=== PATIENT | male | born 1985 | race Caucasian/White ===

== ENCOUNTER 2016-10-13 22:21 | Emergency (ER) | payer BC, OTHER ==
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
--- NOTE | 2016-10-13 23:27 | CT ---
EXAM: CT Head Without Intravenous Contrast CLINICAL HISTORY: Reason: Pain TECHNIQUE: Axial computed tomography images of the head/brain without intravenous contrast. CTDI is 0.15, 59.43, 24.16 mGy and DLP is 1747 mGy-cm. This CT exam was performed using one or more of the following dose reduction techniques: automated exposure control, adjustment of the mA and/or kV according to patient size, and/or use of iterative reconstruction technique. COMPARISON: No relevant prior studies available. FINDINGS: Brain: No evidence of acute infarct, hemorrhage, mass or edema. No significant white matter disease. Ventricles: Unremarkable. No ventriculomegaly. Bones/joints: Posterior joint changes noted within the left mastoid air cells. No acute fracture. Soft tissues: Unremarkable. Sinuses: Mild mucosal thickening in the paranasal sinuses. Mastoid air cells: See above. IMPRESSION: No acute findings. EXAM: CT Cervical Spine Without Intravenous Contrast CLINICAL HISTORY: Reason: Pain TECHNIQUE: Axial computed tomography images of the cervical spine without intravenous contrast. CTDI is 0.15, 59.43, 24.16 mGy and DLP is 1747 mGy- cm. This CT exam was performed using one or more of the following dose reduction techniques: automated exposure control, adjustment of the mA and/or kV according to patient size, and/or use of iterative reconstruction technique. COMPARISON: No relevant prior studies available. FINDINGS: Vertebrae: Unremarkable. No acute fracture. Discs/spinal canal/neural foramina: No acute findings. No spinal canal stenosis. Soft tissues: Unremarkable. Lung apices: Unremarkable as visualized. IMPRESSION: Normal cervical spine CT.
--- NOTE | 2016-10-13 23:43 | XR ---
EXAM: XR Left Ankle Complete, 3 or More Views CLINICAL HISTORY: Pain TECHNIQUE: Frontal, lateral and oblique views of the left ankle. COMPARISON: No relevant prior studies available. FINDINGS: Bones/joints: Unremarkable. No acute fracture. No dislocation. Soft tissues: Unremarkable. IMPRESSION: Normal left ankle x-rays.
--- NOTE | 2016-10-13 23:43 | XR ---
EXAM: XR Left Elbow Complete, 3 or More Views CLINICAL HISTORY: Pain TECHNIQUE: Frontal, lateral and oblique views of the left elbow. COMPARISON: No relevant prior studies available. FINDINGS: Bones/joints: Unremarkable. No acute fracture. No dislocation. Soft tissues: Unremarkable. IMPRESSION: Normal left elbow x-rays.
[2016-10-13] MEDS ORDERED: HYDROcodone/APAP 5-325MG 1 EACH TAB PO STA (23:49)
[2016-10-13] MEDS ORDERED: CYCLOBENZAPRINE 10 MG TAB PO STA (23:49)
[2016-10-14 00:09] VITALS: BP 126/84; PULSE 84; RESP 18; TEMP 97.2
== END 2016-10-14 00:09 | disposition home or self-care (01) ==
LOC: EC 22:21
DX: S06.0X0A Concussion without loss of consciousness, initial encounter (principal); S16.1XXA Strain of muscle, fascia and tendon at neck level, initial encounter; S93.402A Sprain of unspecified ligament of left ankle, initial encounter; F17.200 Nicotine dependence, unspecified, uncomplicated; Z88.1 Allergy status to other antibiotic agents; V87.8XXA Person injured in other specified noncollision transport accidents involving motor vehicle (traffic), initial encounter; Y92.410 Unspecified street and highway as the place of occurrence of the external cause
CPT/HCPCS: 70450; 72125; 99284

== ENCOUNTER → 2016-10-15 | Outpatient (CLI) | payer BC ==
--- NOTE | 2016-10-15 11:28 | XR ---
EXAMINATION TYPE: XR chest 2V DATE OF EXAM: 10/15/2016 HISTORY: R53.83 fatigue. REFERENCE: NONE. FINDINGS: There is mild peribronchial cuffing present. Lungs otherwise clear. Pleural space are clear . The heart is not enlarged. IMPRESSION: FINDINGS SUGGESTIVE OF BRONCHITIS.
== END | disposition home or self-care (01) ==
LOC: RADXRMAIN 11:06
PROVIDERS: ATTEND Family Medicine
DX: R53.83 Other fatigue (principal)
CPT/HCPCS: 71020

== ENCOUNTER 2018-10-08 08:11 | Emergency (ER) | payer BC, OTHER ==
[2018-10-08] MEDS ORDERED: SODIUM CHLORIDE 0.9% 1,000 ML IV STA (08:46)
[2018-10-08] MEDS ORDERED: ACETAMINOPHEN TAB 500 MG TAB PO STA (08:47)
[2018-10-08 09:15] LABS: Basophils # (A) 0.1 k/uL (0-0.2); Basophils % (A) 0 %; Eosinophils # (A) 0.3 k/uL (0-0.7); Eosinophils % (A) 2 %; HCT 38.6 % (39.0-53.0); HGB 12.7 gm/dL (13.0-17.5); Lymphocytes # (A) 0.9 k/uL (1.0-4.8); Lymphocytes % (A) 6 %; MCH 29.9 pg (25.0-35.0); MCV 90.8 fL (80.0-100.0); Mean Platelet Volume 6.9; Monocytes # (A) 0.7 k/uL (0-1.0); Monocytes % (A) 4 %; Neutrophils # (A) 13.9 k/uL (1.3-7.7); Neutrophils % (A) 87 %; Platelet Count 212 k/uL (150-450); RBC 4.26 m/uL (4.30-5.90); RDW 13.5 % (11.5-15.5)
[2018-10-08 09:20] LABS: ALT 23 U/L (21-72); AST 26 U/L (17-59); Albumin 3.5 g/dL (3.5-5.0); Alkaline Phosphatase 83 U/L (38-126); Amylase 33 U/L (30-110); Anion Gap 6 mmol/L; Blood Urea Nitrogen 11 mg/dL (9-20); Calcium 9.1 mg/dL (8.4-10.2); Carbon Dioxide 23 mmol/L (22-30); Chloride 105 mmol/L (98-107); Glucose 108 mg/dL (74-99); Lipase 32 U/L (23-300); Potassium 3.9 mmol/L (3.5-5.1); Sodium 134 mmol/L (137-145); Total Bilirubin 0.9 mg/dL (0.2-1.3); Total Protein 6.2 g/dL (6.3-8.2)
[2018-10-08] MEDS ORDERED: KETOROLAC 30 MG/ML 1 ML VIAL IVP STA (09:21)
--- NOTE | 2018-10-08 09:26 | ED ---
General Adult HPI - General Chief complaint: Abdominal Pain Stated complaint: kidney pain Time Seen by Provider: 10/08/18 08:46 Source: patient, RN notes reviewed Mode of arrival: ambulatory Limitations: no limitations - History of Present Illness Initial comments: 32-year-old male presents to the emergency department for a chief complaint of left-sided flank pain 24 hours. States his pain in left flank and seems to radiate around the left side of the abdomen. States it is a sharp pain in nature. Patient states laying on his side makes this pain worse. Patient also admits to fevers. States he has had fevers since yesterday. Denies any dysur ia. Denies any hematuria noted. Denies any diarrhea or nausea or vomiting.Patient has no other complaints at this time including shortness of breath, chest pain, abdominal pain, nausea or vomiting, headache, or visual changes. - Related Data Previous Rx's Medication Instructions Recorded Azithromycin [Zithromax Z-pack] 250 mg PO DIRECTED #6 tab 10/08/18 Allergies Allergy/AdvReac Type Severity Reaction Status Date / Time cefaclor [From Ceclor] AdvReac Cj Verified 10/08/18 08:33 Syndrome Review of Systems ROS Statement: Those systems with pertinent positive or pertinent negative responses have been documented in the HPI. ROS Other: All systems not noted in ROS Statement are negative. Past Medical History Past Medical History: No Reported History History of Any Multi-Drug Resistant Organisms: None Reported Past Surgical History: Ear Surgery Additional Past Surgical History / Comment(s): oral surgery Past Psychological History: No Psychological Hx Reported Smoking Status: Current every day smoker Past Alcohol Use History: Occasional Past Drug Use History: None Reported General Exam Limitations: no limitations General appearance: alert, in no apparent distress Head exam: Present: atraumatic, normocephalic, normal inspection Eye exam: Present: normal appearance. Absent: PERRL, EOMI, scleral icterus, conjunctival injection, nystagmus ENT exam: Present: normal exam, normal oropharynx, mucous membranes moist, TM's normal bilaterally, normal external ear exam Neck exam: Present: normal inspection, full ROM. Absent: tenderness, meningismus, lymphadenopathy Respiratory exam: Present: normal lung sounds bilaterally. Absent: respiratory distress, wheezes, rales, rhonchi, stridor Cardiovascular Exam: Present: regular rate, normal rhythm, normal heart sounds. Absent: systolic murmur, diastolic murmur, rubs, gallop, clicks GI/Abdominal exam: Present: soft, normal bowel sounds. Absent: distended, tenderness, guarding, rebound, rigid Back exam: Absent: CVA tenderness (R), CVA tenderness (L) Neurological exam: Present: alert, oriented X3, CN II-XII intact Psychiatric exam: Present: normal affect, normal mood Course Vital Signs 10/08/18 10/08/18 08:22 11:17 Temperature 101.5 F H 98.4 F Pulse Rate 111 H 94 Respiratory 18 16 Rate Blood Pressure 103/62 109/66 O2 Sat by Pulse 95 95 Oximetry Medical Decision Making - Medical Decision Making 32-year-old male presents to the emergency department for a chief complaint of left flank pain with fever 24 hours. On examand CVA tenderness. No abdominal tenderness. CBC however does show a white count of 16 and patient does have a 101 fever. CMP unremarkable. Urine negative, trace blood which patient was notified about. CT abdomen and pelvis is ordered to evaluate for kidney stone. However CT abdomen and pelvis does show a large left lower lobe infiltrate. Patient denies significant cough but does state it is somewhat painful to breathe. Medical correlation advised to evaluate for appendicitis as there is nonvisualization. However patient does not have any pain whatsoever in the right lower quadrant or right back. No abdominal tenderness in this area. At this time it is likely that fever is secondary to pneumonia. Patient was given dose of azithromycin here. I did offer to admit patient but he would much rather go home. Vitals did stabilize. Patient is no longer afebrile and heart rate is decreasing. Patient is 95% on room air. Resting complaint of shortness of breath. Patient will be given a Z-Sp. However will follow up with primary care for repeat chest x-ray in one week. He will follow up earlier as well. He will return here if he has any worsening symptoms which he is aware of. - Lab Data Result diagrams: 10/08/18 08:50 10/08/18 08:50 Lab Results 10/08/18 10/08/18 10/08/18 Range/Units 08:50 08:50 08:50 WBC 16.0 H (3.8-10.6) k/uL RBC 4.26 L (4.30-5.90) m/uL Hgb 12.7 L (13.0-17.5) gm/dL Hct 38.6 L (39.0-53.0) % MCV 90.8 (80.0-100.0) fL MCH 29.9 (25.0-35.0) pg MCHC 33.0 (31.0-37.0) g/dL RDW 13.5 (11.5-15.5) % Plt Count 212 (150-450) k/uL Neutrophils % 87 % Lymphocytes % 6 % Monocytes % 4 % Eosinophils % 2 % Basophils % 0 % Neutrophils # 13.9 H (1.3-7.7) k/uL Lymphocytes # 0.9 L (1.0-4.8) k/uL Monocytes # 0.7 (0-1.0) k/uL Eosinophils # 0.3 (0-0.7) k/uL Basophils # 0.1 (0-0.2) k/uL Sodium 134 L (137-145) mmol/L Potassium 3.9 (3.5-5.1) mmol/L Chloride 105 (98-107) mmol/L Carbon Dioxide 23 (22-30) mmol/L Anion Gap 6 mmol/L BUN 11 (9-20) mg/dL Creatinine 0.77 (0.66-1.25) mg/dL Est GFR (CKD-EPI)AfAm >90 (>60 ml/min/1.73 sqM) Est GFR (CKD-EPI)NonAf >90 (>60 ml/min/1.73 sqM) Glucose 108 H (74-99) mg/dL Plasma Lactic Acid [place] 1.1 (0.7-2.0) mmol/L Calcium 9.1 (8.4-10.2) mg/dL Total Bilirubin 0.9 (0.2-1.3) mg/dL AST 26 (17-59) U/L ALT 23 (21-72) U/L Alkaline Phosphatase 83 (38-126) U/L Total Protein 6.2 L (6.3-8.2) g/dL Albumin 3.5 (3.5-5.0) g/dL Amylase 33 (30-110) U/L Lipase 32 (23-300) U/L Urine Color Urine Appearance (Clear) Urine pH (5.0-8.0) Ur Specific [place] (1.001-1.035) Urine Protein (Negative) Urine Glucose (UA) (Negative) Urine Ketones (Negative) Urine Blood (Negative) Urine Nitrite (Negative) Urine Bilirubin (Negative) Urine Urobilinogen (<2.0) mg/dL Ur Leukocyte Esterase (Negative) Urine RBC (0-5) /hpf Urine WBC (0-5) /hpf Urine Mucus (None) /hpf 10/08/18 Range/Units 09:40 WBC (3.8-10.6) k/uL RBC (4.30-5.90) m/uL Hgb (13.0-17.5) gm/dL Hct (39.0-53.0) % MCV (80.0-100.0) fL MCH (25.0-35.0) pg MCHC (31.0-37.0) g/dL RDW (11.5-15.5) % Plt Count (150-450) k/uL Neutrophils % % Lymphocytes % % Monocytes % % Eosinophils % % Basophils % % Neutrophils # (1.3-7.7) k/uL Lymphocytes # (1.0-4.8) k/uL Monocytes # (0-1.0) k/uL Eosinophils # (0-0.7) k/uL Basophils # (0-0.2) k/uL Sodium (137-145) mmol/L Potassium (3.5-5.1) mmol/L Chloride (98-107) mmol/L Carbon Dioxide (22-30) mmol/L Anion Gap mmol/L BUN (9-20) mg/dL Creatinine (0.66-1.25) mg/dL Est GFR (CKD-EPI)AfAm (>60 ml/min/1.73 sqM) Est GFR (CKD-EPI)NonAf (>60 ml/min/1.73 sqM) Glucose (74-99) mg/dL Plasma Lactic Acid [place] (0.7-2.0) mmol/L Calcium (8.4-10.2) mg/dL Total Bilirubin (0.2-1.3) mg/dL AST (17-59) U/L ALT (21-72) U/L Alkaline Phosphatase (38-126) U/L Total Protein (6.3-8.2) g/dL Albumin (3.5-5.0) g/dL Amylase (30-110) U/L Lipase (23-300) U/L Urine Color Yellow Urine Appearance Clear (Clear) Urine pH 7.5 (5.0-8.0) Ur Specific [place] 1.021 (1.001-1.035) Urine Protein 1+ H (Negative) Urine Glucose (UA) Negative (Negative) Urine Ketones Negative (Negative) Urine Blood Trace H (Negative) Urine Nitrite Negative (Negative) Urine Bilirubin Negative (Negative) Urine Urobilinogen 8.0 (<2.0) mg/dL Ur Leukocyte Esterase Negative (Negative) Urine RBC 1 (0-5) /hpf Urine WBC 1 (0-5) /hpf Urine Mucus Rare H (None) /hpf Disposition Clinical Impression: Left lower lobe pneumonia Disposition: HOME SELF-CARE Condition: Good Instructions (If sedation given, give patient instructions): Pneumonia (ED) Additional Instructions: Please take antibiotic as directed. Motrin and Tylenol for fever. Please drink plenty of fluids. Follow-up with primary care in 1-2 days. It is advised that you follow up with primary care in 1 week as well for a repeat chest x-ray. Return here if you have any worsening symptoms. Prescriptions: Azithromycin [Zithromax Z-pack] 250 mg PO DIRECTED #6 tab Is patient prescribed a controlled substance at d/c from ED?: No Referrals: Gertrude Rose MD [Primary Care Provider] - 1-2 days Time of Disposition: 12:27
[2018-10-08 10:05] LABS: Appearance,Urine Clear (Clear); Bilirubin,Urine Negative (Negative); Blood,Urine Trace (Negative); Color,Urine Yellow; Glucose,Urine (UA) Negative (Negative); Ketones,Urine Negative (Negative); Leukocyte Esterase,Urine Negative (Negative); Mucus,Urine Rare /hpf; Nitrite,Urine Negative (Negative); PH, Urine 7.5 (5.0-8.0); Protein,Urine 1+ (Negative); RBC,Urine 1 /hpf (0-5); Specific Gravity,Urine 1.021 (1.001-1.035); WBC,Urine 1 /hpf (0-5)
--- NOTE | 2018-10-08 10:19 | CT ---
EXAMINATION TYPE: CT abdomen pelvis w con DATE OF EXAM: 10/08/2018 COMPARISON: None HISTORY: Kidney pain CT DLP: 564 mGycm CONTRAST: CT scan of the abdomen and pelvis is performed without Oral Contrast and with IV Contrast, patient in jected with 100 ml mL of Isovue 300. FINDINGS: LUNG BASES-: Large left lower lobe infiltrate. Correlate for pneumonia. LIVER/GB: No calcified gallstones. No space occupying hepatic lesion. Biliary tree is of normal ca liber. PANCREAS: No inflammation. No distinct mass. SPLEEN: No splenic enlargement. No lesion seen. ADRENALS: No nodule. No thickening. KIDNEYS/BLADDER: No hydronephrosis. No nephrolithiasis. No distinct renal mass. Urinary bladder g rossly unremarkable. BOWEL: Non Visualization of the appendix. Little intra-abdominal fat limits evaluation for possible i nflammatory process. Strict clinical correlation is advised . Normal bowel caliber. Trace free flui d within the pelvis. GENITAL ORGANS: No gross abnormality. LYMPH NODES: No greater than 1cm abdominal or pelvic lymph nodes are appreciated. AORTA: No significant abnormality. OSSEOUS STRUCTURES: No significant abnormality is seen. OTHER: No significant additional abnormality is seen. IMPRESSION: 1. Large left lower lobe infiltrate. Correlate for pneumonia. 2.Non Visualization of the appendix. Little intra-abdominal fat limits evaluation for possible inflam matory process. Strict clinical correlation is advised . Small amount of free fluid within the pelvis .
[2018-10-08] MEDS ORDERED: AZITHROMYCIN 500 MG in SODIUM CHLORIDE 0.9% 250 ML IVPB STA (10:55)
[2018-10-08 11:18] VITALS: RESP 16
--- NOTE | 2018-10-08 11:21 | XR ---
EXAMINATION TYPE: XR chest 2V DATE OF EXAM: 10/08/2018 COMPARISON: Chest x-ray October 15, 2016. Same day CT abdomen and pelvis study. HISTORY: Left lower chest pain. TECHNIQUE: Frontal and lateral views of the chest are obtained. FINDINGS: There is new left lower lobe masslike opacity confirmed on 2 views. Right lung is clear. N o pleural effusion or pneumothorax is noted The cardiac silhouette size is within normal limits. Th e osseous structures are intact. IMPRESSION: New left lower lobe pneumonic consolidation.
[2018-10-08 12:54] VITALS: BP 110/70; PULSE 61; TEMP 98.9
== END 2018-10-08 12:53 | disposition home or self-care (01) ==
LOC: EC 08:11
DX: J18.9 Pneumonia, unspecified organism (principal); R10.9 Unspecified abdominal pain; F17.200 Nicotine dependence, unspecified, uncomplicated; Z88.1 Allergy status to other antibiotic agents
CPT/HCPCS: 36415; 71046; 74177; 80053; 81001; 82150; 83605; 83690; 85025; 87040; 96361; 96365; 96375; 99284

== ENCOUNTER 2018-10-17 00:45 | Emergency (ER) | payer BC ==
[2018-10-17 00:59] VITALS: RESP 18
--- NOTE | 2018-10-17 02:07 | XR ---
EXAM: XR Chest, 2 Views CLINICAL HISTORY: ITS.REASON XR Reason: Pain TECHNIQUE: Frontal and lateral views of the chest. COMPARISON: No relevant prior studies available. FINDINGS: Lungs: Unremarkable. No consolidation. Pleural space: Left pleural effusion. No pneumothorax. Heart: No suspicious enlargement. Mediastinum: Unremarkable. Bones/joints: No acute fracture. IMPRESSION: Left pleural effusion.
[2018-10-17] MEDS ORDERED: SODIUM CHLORIDE 0.9% 1,000 ML IV STA (02:50)
[2018-10-17 03:32] LABS: Basophils % (A) 0 %; Eosinophils # (A) 0.5 k/uL (0-0.7); Eosinophils % (A) 5 %; HGB 13.2 gm/dL (13.0-17.5); Lymphocytes # (A) 1.5 k/uL (1.0-4.8); Lymphocytes % (A) 15 %; MCH 29.8 pg (25.0-35.0); MCHC 32.3 g/dL (31.0-37.0); MCV 92.4 fL (80.0-100.0); Mean Platelet Volume 6.6; Monocytes # (A) 0.6 k/uL (0-1.0); Monocytes % (A) 5 %; Neutrophils # (A) 7.6 k/uL (1.3-7.7); Neutrophils % (A) 74 %; RBC 4.44 m/uL (4.30-5.90); WBC 10.4 k/uL (3.8-10.6)
[2018-10-17 03:41] LABS: Platelet Count 508 k/uL (150-450)
[2018-10-17 03:46] LABS: ALT 11 U/L (21-72); AST 14 U/L (17-59); African American GFR (CKD) >90 (>60 ml/min/1.73 sqM); Albumin 3.4 g/dL (3.5-5.0); Alkaline Phosphatase 59 U/L (38-126); Anion Gap 7 mmol/L; Blood Urea Nitrogen 9 mg/dL (9-20); Calcium 8.9 mg/dL (8.4-10.2); Carbon Dioxide 28 mmol/L (22-30); Chloride 104 mmol/L (98-107); Glucose 100 mg/dL (74-99); Potassium 3.8 mmol/L (3.5-5.1); Sodium 139 mmol/L (137-145); Total Bilirubin 0.3 mg/dL (0.2-1.3); Total Protein 6.6 g/dL (6.3-8.2)
--- NOTE | 2018-10-17 04:30 | CT ---
EXAM: CT Angiography Chest With Intravenous Contrast CLINICAL HISTORY: ITS.REASON CT Reason: Pain TECHNIQUE: Axial computed tomographic angiography images of the chest with intravenous contrast using pulmonary embolism protocol. This CT exam was performed using one or more of the following dose reduction techniques: automated exposure control, adjustment of the mA and/or kV according to patient size, and/or use of iterative reconstruction technique. 3D reconstructed images were created and reviewed. COMPARISON: No relevant prior studies available. FINDINGS: Pulmonary arteries: Unremarkable. No pulmonary embolism. Aorta: No suspicious findings. No thoracic aortic aneurysm. Lungs: Mucous plugging at the left lower lobe with postobstructive atelectasis. No mass. Pleural space: Moderate left pleural effusion. No pneumothorax. Heart: Unremarkable. No cardiomegaly. No significant pericardial effusion. No evidence of RV dysfunction. Bones/joints: No acute fracture. No dislocation. Soft tissues: Unremarkable. Lymph nodes: Unremarkable. No enlarged lymph nodes. IMPRESSION: 1. Moderate left pleural effusion. 2. Mucous plugging at the left lower lobe with postobstructive atelectasis.
--- NOTE | 2018-10-17 04:34 | ED ---
General Adult HPI - General Source: patient, RN notes reviewed, old records reviewed Mode of arrival: ambulatory Limitations: no limitations <Hansel Pak - Last Filed: 10/17/18 04:44> <Karissa Rudolph - Last Filed: 10/17/18 21:25> - General Chief complaint: Upper Respiratory Infection Stated complaint: Pneumonia Time Seen by Provider: 10/17/18 01:44 - History of Present Illness Initial comments: 32-year-old male patient no pertinent past medical history presents to ED with complaint of left lobe lung pain. Patient with you diagnosed pneumonia approximately one week ago. Patient was placed on azithromycin. He had improvement in his symptoms. Patient said last 4 days he has had pain in the left lower lobe of his lung, worse with inspiration. Patient denies any pain at rest. Patient denies any other complaints at this time. Systemic: Pt denies fatigue, fever/chills, rash. Pt denies weakness, night sweats, weight loss. Neuro: Pt denies headache, visual disturbances, syncope or pre-syncope. HEENT: Pt denies ocular discharge or irritation, otalgia, rhinorrhea, pharyngitis or notable lymphadenopathy. Cardiopulmonary: Pt denies chest pain, heart palpitations, dyspnea on exertion. Abdominal/GI: Pt denies abdominal pain, n/v/d. : Pt denies dysuria, burning w/ urination, frequency/urgency. Denies new onset urinary or bowel incontinence. MSK: Pt denies myalgia, loss of strength or function in extremities. Neuro: Pt denies new onset weakness, paresthesias. (Hansel Pak) - Related Data Previous Rx's Medication Instructions Recorded Azithromycin [Zithromax Z-pack] 250 mg PO DIRECTED #6 tab 10/08/18 Allergies Allergy/AdvReac Type Severity Reaction Status Date / Time cefaclor [From Ceclor] AdvReac [place]-Stef Verified 10/17/18 00:59 Syndrome Review of Systems ROS Other: All systems not noted in ROS Statement are negative. <Hansel Pak - Last Filed: 10/17/18 04:44> ROS Other: All systems not noted in ROS Statement are negative. <Karissa Rudolph - Last Filed: 10/17/18 21:25> ROS Statement: Those systems with pertinent positive or pertinent negative responses have been documented in the HPI. Past Medical History Past Medical History: No Reported History History of Any Multi-Drug Resistant Organisms: None Reported Past Surgical History: Ear Surgery Additional Past Surgical History / Comment(s): oral surgery Past Psychological History: No Psychological Hx Reported Smoking Status: Current every day smoker Past Alcohol Use History: Occasional Past Drug Use History: None Reported <Hansel Pak - Last Filed: 10/17/18 04:44> General Exam Limitations: no limitations <Hansel Pak - Last Filed: 10/17/18 04:44> - General Exam Comments Initial Comments: Constitutional: NAD, AOX3, Pt has pleasant affect. HEENT: NC/AT, trachea midline, neck supple, no lymphadenopathy. Posterior pharynx non erythematous, without exudates. External ears appear normal, without discharge. Mucous membranes moist. Eyes PERRLA, EOM intact. There is no scleral icterus. No pallor noted. Cardiopulmonary: RRR, no murmurs, rubs or gallops, no JVD noted. Lungs CTAB in a nterior and posterior steele. No peripheral edema. Abdominal exam: Abdomen soft and non-distended. Abdomen non-tender to palpation in all 4 quadrants. Bowel sounds active in LLQ. No hepatosplenomegaly. No ecchymosis Neuro: CN II-XII grossly intact. No nuchal rigidity. No raccon eyes, no bailey sign, no hemotympanum. No cervical spinal tenderness. MSK: No posterior calf tenderness bilaterally, homans sign negative bilaterally. Posterior tibialis and radial pulse +2 bilaterally. Sensation intact in upper and lower extremities. Full active ROM in upper and lower extremities, 5/5 stregnth. (Hansel Pak) Course Vital Signs 10/17/18 10/17/18 10/17/18 00:56 02:30 05:02 Temperature 99 F 97 F L Pulse Rate 93 77 Respiratory 18 18 Rate Blood Pressure 104/63 133/71 O2 Sat by Pulse 97 98 97 Oximetry Medical Decision Making - Lab Data Result diagrams: 10/17/18 03:22 10/17/18 03:22 <Hansel Pak - Last Filed: 10/17/18 04:44> - Lab Data Result diagrams: 10/17/18 03:22 10/17/18 03:22 <Karissa Rudolph - Last Filed: 10/17/18 21:25> - Medical Decision Making 32-year-old male patient no pertinent past medical history presents to ED with complaint of left lobe lung pain. Patient with you diagnosed pneumonia approximately one week ago. Patient was placed on azithromycin. He had improvement in his symptoms. Patient said last 4 days he has had pain in the left lower lobe of his lung, worse with inspiration. Patient denies any pain at rest. Patient denies any other complaints at this time. Patient also stable, afebrile. Physical exam did not display acute pathology. Laboratory investigations revealed non-impressive CBC, CMP. Troponin negative. EKG not concerning for acute ischemia. Chest x-ray revealed left pleural effusion. CTA revealed moderate left pleural effusion, mucous plug in the left lower lobe with postobstructive atelectasis. Patient likely expressing pleurisy. Patient will be discharged with incentive spirometry and follow-up with primary care provider tomorrow. Patient was return to ER physician or symptoms. Case discussed with Dr. Rudolph. (Hansel Pak) I was available for consultation in the emergency department. The history and physical exam were done by the midlevel provider. I was consulted for this patient's care. I reviewed the case with the midlevel provider and based on their presentation of the patient, I agree with the assessment, medical decision making and plan of care as documented. Chart was dictated using [employer] dictation software. Attempts were made to radha ect any dictation errors however some typographical errors may persist. (Karissa Rudolph) - Lab Data Lab Results 10/17/18 10/17/18 10/17/18 Range/Units 03:22 03:22 03:22 WBC 10.4 (3.8-10.6) k/uL RBC 4.44 (4.30-5.90) m/uL Hgb 13.2 (13.0-17.5) gm/dL Hct 41.0 (39.0-53.0) % MCV 92.4 (80.0-100.0) fL MCH 29.8 (25.0-35.0) pg MCHC 32.3 (31.0-37.0) g/dL RDW 14.0 (11.5-15.5) % Plt Count 508 H D (150-450) k/uL Neutrophils % 74 % Lymphocytes % 15 % Monocytes % 5 % Eosinophils % 5 % Basophils % 0 % Neutrophils # 7.6 (1.3-7.7) k/uL Lymphocytes # 1.5 (1.0-4.8) k/uL Monocytes # 0.6 (0-1.0) k/uL Eosinophils # 0.5 (0-0.7) k/uL Basophils # 0.0 (0-0.2) k/uL Sodium 139 (137-145) mmol/L Potassium 3.8 (3.5-5.1) mmol/L Chloride 104 (98-107) mmol/L Carbon Dioxide 28 (22-30) mmol/L Anion Gap 7 mmol/L BUN 9 (9-20) mg/dL Creatinine 0.65 L (0.66-1.25) mg/dL Est GFR (CKD-EPI)AfAm >90 (>60 ml/min/1.73 sqM) Est GFR (CKD-EPI)NonAf >90 (>60 ml/min/1.73 sqM) Glucose 100 H (74-99) mg/dL Calcium 8.9 (8.4-10.2) mg/dL Total Bilirubin 0.3 (0.2-1.3) mg/dL AST 14 L (17-59) U/L ALT 11 L (21-72) U/L Alkaline Phosphatase 59 (38-126) U/L Troponin I <0.012 (0.000-0.034) ng/mL Total Protein 6.6 (6.3-8.2) g/dL Albumin 3.4 L (3.5-5.0) g/dL Disposition Is patient prescribed a controlled substance at d/c from ED?: No <Hansel Pak - Last Filed: 10/17/18 04:44> <Karissa Rudolph - Last Filed: 10/17/18 21:25> Clinical Impression: Pleurisy, Pleural effusion Disposition: HOME SELF-CARE Condition: Stable Instructions (If sedation given, give patient instructions): Pleurisy (ED) Additional Instructions: Patient to adhere to previously discussed treatment plan and will take medication(s) as directed. Patient to follow up with PCP in 1-2 days. Patient to return to ED if symptoms do not improve. Please uses of this problem as directed. Please follow-up with primary care provider in 1-2 days for continued evaluation. Please return to ER if condition worsens in anyway. Referrals: Gertrude Rose MD [Primary Care Provider] - 1-2 days
[2018-10-17] MEDS ORDERED: KETOROLAC 30 MG/ML 1 ML VIAL IVP STA (04:53)
[2018-10-17 05:09] VITALS: BP 133/71; PULSE 77; TEMP 97
== END 2018-10-17 05:00 | disposition home or self-care (01) ==
LOC: EC 00:45
DX: J90 Pleural effusion, not elsewhere classified (principal); J98.11 Atelectasis; F17.200 Nicotine dependence, unspecified, uncomplicated; Z88.1 Allergy status to other antibiotic agents
CPT/HCPCS: 36415; 93005; 80053; 84484; 85025; 71046; 71275; 99284; 96374; 96361; J1885; Q9967

== ENCOUNTER 2018-12-27 21:55 | Emergency (ER) | payer BC, OTHER ==
[2018-12-27] MEDS ORDERED: SODIUM CHLORIDE 0.9% 1,000 ML IV STA (22:53)
[2018-12-27] MEDS ORDERED: VANCOMYCIN IV PER PHARMACY 1 EACH MISC MISCELLANE STA ×2 (22:53→23:45)
--- NOTE | 2018-12-27 23:01 | XR ---
EXAM: XR Left Finger(s), 2 or More Views CLINICAL HISTORY: ITS.REASON XR Reason: edema TECHNIQUE: Frontal, lateral and oblique views of finger(s) of the left hand. COMPARISON: No relevant prior studies available. FINDINGS: Bones/joints: Unremarkable. No acute fracture. No dislocation. Soft tissues: Mild nonspecific soft tissue swelling around the proximal phalanx No radiopaque foreign body. IMPRESSION: Normal x-rays of the visualized left fingers.
--- NOTE | 2018-12-27 23:02 | ED ---
Skin/Abscess/FB HPI - General Source: patient Mode of arrival: ambulatory Limitations: no limitations <Chantal Rodriguez - Last Filed: 12/28/18 00:15> <Matheus Lara - Last Filed: 01/05/19 08:36> - General Chief complaint: Skin/Abscess/Foreign Body Stated complaint: IHS-Hand Infection Time Seen by Provider: 12/27/18 22:17 - History of Present Illness Initial comments: Patient is a 33-year-old male presented to the emergency Department with complaints of a possible infection in his finger 5 days. 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 Patient states he thinks his injury happened approximately 5 days ago. Patient states the redness has been increasing and today he noticed pain traveling up his left arm and also red streaking. Patient denies fever, chills, nausea, vomiting. Patient does have history of a MRSA infection. Patient states the pain is about 6/10. Patient has no other complaints at this time. Upon arrival to ER, vital signs are stable, afebrile. (Chantal Rodriguez) - Related Data Previous Rx's Medication Instructions Recorded Azithromycin [Zithromax Z-pack] 250 mg PO DIRECTED #6 tab 10/08/18 Sulfamethox-Tmp 800-160Mg [Bactrim 1 each PO Q8HR 14 Days #42 tab 12/28/18 Ds] Allergies Allergy/AdvReac Type Severity Reaction Status Date / Time cefaclor [From Ceclor] AdvReac Cj Verified 12/27/18 22:06 Syndrome Review of Systems ROS Other: All systems not noted in ROS Statement are negative. <Chantal Rodriguez - Last Filed: 12/28/18 00:15> ROS Other: All systems not noted in ROS Statement are negative. <Matheus Lara - Last Filed: 01/05/19 08:36> ROS Statement: Those systems with pertinent positive or pertinent negative responses have been documented in the HPI. Past Medical History Past Medical History: No Reported History History of Any Multi-Drug Resistant Organisms: MRSA Date of last positivie culture/infection: 2012 MDRO Source:: leg Past Surgical History: Ear Surgery Additional Past Surgical History / Comment(s): oral surgery, Past Psychological History: No Psychological Hx Reported Smoking Status: Current every day smoker Past Alcohol Use History: Occasional Past Drug Use History: None Reported <Chantal Rodriguez - Last Filed: 12/28/18 00:15> General Exam Limitations: no limitations <JenniferChantal Caden - Last Filed: 12/28/18 00:15> - General Exam Comments Initial Comments: GENERAL: Well-appearing, well-nourished and in no acute distress. HEAD: Atraumatic, normocephalic. EYES: Pupils equal round and reactive to light, extraocular movements intact, sclera anicteric, conjunctiva are normal. ENT: TMs normal, nares patent, oropharynx clear without exudates. Moist mucous membranes. NECK: Normal range of motion, supple without lymphadenopathy or JVD. LUNGS: Breath sounds clear to auscultation bilaterally and equal. No wheezes rales or rhonchi. HEART: Regular rate and rhythm without murmurs, rubs or gallops. ABDOMEN: Soft, nontender, normoactive bowel sounds. No guarding, no rebound. No masses appreciated. : Deferred EXTREMITIES: Patient has a puncture wound on the left index finger proximal to PIP joint on the palmar aspect. The area is warm to the touch, erythematous, pus underneath the skin. Patient also has erythema on the dorsal aspect near the base of the first digit that extends proximal into his left hand and left forearm. No proximal lymph nodes are felt along the elbow or left axillary area. Patient has pain with finger extension and flexion, But has full range of motion. NEUROLOGICAL: Cranial nerves II through XII grossly intact. Normal speech, normal gait. PSYCH: Normal mood, normal affect. SKIN: Warm, Dry, normal turgor, no rashes or lesions noted. (Chantal Rodriguez) Course Vital Signs 12/27/18 12/28/18 22:01 02:25 Temperature 97.9 F 97.7 F Pulse Rate 68 67 Respiratory 16 20 Rate Blood Pressure 104/73 109/69 O2 Sat by Pulse 99 97 Oximetry Medical Decision Making - Lab Data Result diagrams: 12/27/18 23:10 12/27/18 23:10 <Chantal Rodriguez - Last Filed: 12/28/18 00:15> - Lab Data Result diagrams: 12/27/18 23:10 12/27/18 23:10 <Matheus Lara - Last Filed: 01/05/19 08:36> - Medical Decision Making Patient is a 33-year-old male presenting with an infection in his left index finger 5 days. Patient states he actually poked himself with a PIC he uses at work approximately 5 days ago. Patient states pain has been increasing since then. Patient states he noticed pain in his upper left arm and stated he saw red streaks coming from his wound. Vital signs are stable upon arrival, afebrile. On exam patient has a puncture wound to the left index finger, palmar aspect proximal to the PIP joint. Patient has pain with active and passive finger flexion and extension but has full range of motion. Patient does have significant erythema and swelling of surrounding the joint. Patient has erythema extending proximally up the left hand into the left arm. A culture of fluid expressed from the wound was taken. CBC and CMP is within normal limits. Lactic acid is 1.4. CRP is elevated at 20.6. Blood cultures are pending. Patient was given dose of IV vancomycin. Patient will be started on a 14 day course of Bactrim as well. Patient was given strict return parameters and he verbalized understanding. Patient will attempt to follow up with orthopedics tomorrow or follow-up in the ER if symptoms persist. Patient is stable for discharge at this time. Case discussed with Dr. Lara. (Chantal Rodriguez) I saw this patient in conjunction with the physician assistant director of financial aid. I performed independent history and physical exam. Agree with case management. At this point it appears patient has a small abscess that is actively draining, rather than having full tenosynovitis. Patient to have close follow-up with the hand surgeon. Discussed return parameters. (Matheus Lara) - Lab Data Lab Results 12/27/18 12/27/18 12/27/18 Range/Units 23:10 23:10 23:10 WBC 5.3 (3.8-10.6) k/uL RBC 4.32 (4.30-5.90) m/uL Hgb 13.3 (13.0-17.5) gm/dL Hct 39.9 (39.0-53.0) % MCV 92.4 (80.0-100.0) fL MCH 30.8 (25.0-35.0) pg MCHC 33.3 (31.0-37.0) g/dL RDW 13.7 (11.5-15.5) % Plt Count 231 (150-450) k/uL Neutrophils % 49 % Lymphocytes % 31 % Monocytes % 9 % Eosinophils % 8 % Basophils % 1 % Neutrophils # 2.6 (1.3-7.7) k/uL Lymphocytes # 1.6 (1.0-4.8) k/uL Monocytes # 0.5 (0-1.0) k/uL Eosinophils # 0.4 (0-0.7) k/uL Basophils # 0.0 (0-0.2) k/uL ESR 9 (0-15) mm/hr Sodium 138 (137-145) mmol/L Potassium 3.6 (3.5-5.1) mmol/L Chloride 104 (98-107) mmol/L Carbon Dioxide 24 (22-30) mmol/L Anion Gap 10 mmol/L BUN 9 (9-20) mg/dL Creatinine 0.70 (0.66-1.25) mg/dL Est GFR (CKD-EPI)AfAm >90 (>60 ml/min/1.73 sqM) Est GFR (CKD-EPI)NonAf >90 (>60 ml/min/1.73 sqM) Glucose 100 H (74-99) mg/dL Plasma Lactic Acid [place] 1.4 (0.7-2.0) mmol/L Calcium 9.4 (8.4-10.2) mg/dL Total Bilirubin 0.2 (0.2-1.3) mg/dL AST 41 (17-59) U/L ALT 46 (21-72) U/L Alkaline Phosphatase 64 (38-126) U/L C-Reactive Protein 20.6 H (<10.0) mg/L Total Protein 7.3 (6.3-8.2) g/dL Albumin 4.1 (3.5-5.0) g/dL Disposition Is patient prescribed a controlled substance at d/c from ED?: No <Chantal Rodriguez - Last Filed: 12/28/18 00:15> <Matheus Lara - Last Filed: 01/05/19 08:36> Clinical Impression: Finger infection Disposition: HOME SELF-CARE Condition: Stable Instructions (If sedation given, give patient instructions): Tenosynovitis (ED) Additional Instructions: Please return to the Emergency Department if symptoms worsen or any other concerns. Follow up with orthopedics tomorrow. Prescriptions: Sulfamethox-Tmp 800-160Mg [Bactrim Ds] 1 each PO Q8HR 14 Days #42 tab Referrals: None,Stated [Primary Care Provider] - 1-2 days
[2018-12-27 23:38] LABS: Basophils % (A) 1 %; Eosinophils # (A) 0.4 k/uL (0-0.7); Eosinophils % (A) 8 %; HCT 39.9 % (39.0-53.0); HGB 13.3 gm/dL (13.0-17.5); Lymphocytes # (A) 1.6 k/uL (1.0-4.8); Lymphocytes % (A) 31 %; MCH 30.8 pg (25.0-35.0); MCHC 33.3 g/dL (31.0-37.0); MCV 92.4 fL (80.0-100.0); Mean Platelet Volume 6.6; Monocytes # (A) 0.5 k/uL (0-1.0); Monocytes % (A) 9 %; Neutrophils # (A) 2.6 k/uL (1.3-7.7); Neutrophils % (A) 49 %; Platelet Count 231 k/uL (150-450); RBC 4.32 m/uL (4.30-5.90); RDW 13.7 % (11.5-15.5); WBC 5.3 k/uL (3.8-10.6)
[2018-12-27] MEDS ORDERED: VANCOMYCIN 1,250 MG in SODIUM CHLORIDE 0.9% 250 ML IVPB ONE (23:45)
[2018-12-27 23:49] LABS: ALT 46 U/L (21-72); AST 41 U/L (17-59); African American GFR (CKD) >90 (>60 ml/min/1.73 sqM); Albumin 4.1 g/dL (3.5-5.0); Alkaline Phosphatase 64 U/L (38-126); Anion Gap 10 mmol/L; Blood Urea Nitrogen 9 mg/dL (9-20); C Reactive Protein 20.6 mg/L (<10.0); Calcium 9.4 mg/dL (8.4-10.2); Carbon Dioxide 24 mmol/L (22-30); Chloride 104 mmol/L (98-107); Glucose 100 mg/dL (74-99); Non-African American GFR(CKD) >90 (>60 ml/min/1.73 sqM); Potassium 3.6 mmol/L (3.5-5.1); Sodium 138 mmol/L (137-145); Total Bilirubin 0.2 mg/dL (0.2-1.3); Total Protein 7.3 g/dL (6.3-8.2)
[2018-12-28 00:34] LABS: Erythrocyte Sedimentation Rate 9 mm/hr (0-15)
[2018-12-28 02:26] VITALS: BP 109/69; PULSE 67; RESP 20; TEMP 97.7
== END 2018-12-28 02:31 | disposition home or self-care (01) ==
LOC: EC 21:55
DX: M65.842 Other synovitis and tenosynovitis, left hand (principal); S61.231A Puncture wound without foreign body of left index finger without damage to nail, initial encounter; F17.200 Nicotine dependence, unspecified, uncomplicated; Z88.1 Allergy status to other antibiotic agents
CPT/HCPCS: 36415; 80053; 85652; 83605; 85025; 86140; 87040; 87070; 87205; 73140; 99283; 96365; 96366; J3370

== ENCOUNTER 2020-02-12 23:08 | Emergency (ER) | payer BC ==
[2020-02-12] MEDS ORDERED: IPRATROPIUM-ALBUTEROL 3 ML NEB INHALATION STA (23:41)
--- NOTE | 2020-02-12 23:58 | XR ---
EXAMINATION TYPE: XR chest 2V DATE OF EXAM: 02/12/2020 COMPARISON: 10/17/2018 HISTORY: Short of breath TECHNIQUE: FINDINGS: Heart and mediastinum are normal. Lungs are clear. Diaphragm is normal. Bony thorax appears normal. The pulmonary vascularity is normal. IMPRESSION: Normal chest. There is clearing of the pneumonia and pleural fluid at the left lung base compared to old exam.
--- NOTE | 2020-02-13 00:11 | ED ---
SOB HPI - General Chief Complaint: Shortness of Breath Stated Complaint: MOIZ Time Seen by Provider: 02/12/20 23:33 Source: patient Mode of arrival: ambulatory Limitations: no limitations - History of Present Illness Initial Comments: Stevan is a 34-year-old male with history of asthma as a child and occur every day smoker. Patient presents to ER today complaining of shortness of breath it's been progressively worsening over a few days. Patient reports she's had recurrent bouts of pneumonia over the past year and has concern that he may be exposed to black mold in his home. Patient denies any fever or chills nausea or vomiting. He reports a nonproductive dry cough and wheezing. Symptoms improved with use of albuterol nebulizer at home. Patient does not follow with pulmonology. - Related Data Previous Rx's Medication Instructions Recorded Azithromycin [Zithromax Z-pack (6 250 mg PO DIRECTED #6 tab 10/08/18 tabs)] Sulfamethox-Tmp 800-160Mg [Bactrim 1 each PO Q8HR 14 Days #42 tab 12/28/18 Ds] Albuterol Nebulized [Ventolin 2.5 mg INHALATION Q4H #30 nebu 02/13/20 Nebulized] Allergies Allergy/AdvReac Type Severity Reaction Status Date / Time cefaclor [From Ceclor] AdvReac Cj Verified 02/12/20 23:29 Syndrome Review of Systems ROS Statement: Those systems with pertinent positive or pertinent negative responses have been documented in the HPI. ROS Other: All systems not noted in ROS Statement are negative. Past Medical History Past Medical History: Pneumonia History of Any Multi-Drug Resistant Organisms: MRSA Date of last positivie culture/infection: 2012 MDRO Source:: leg Past Surgical History: Ear Surgery Additional Past Surgical History / Comment(s): oral surgery, Past Psychological History: No Psychological Hx Reported Smoking Status: Current every day smoker Past Alcohol Use History: Rare Past Drug Use History: None Reported General Exam - General Exam Comments Initial Comments: Physical Exam GENERAL: Patient is well-developed and well-nourished. Patient is nontoxic and well- hydrated and is in no distress. HENT: Normocephalic, Atraumatic. EYES: PERRL, EOMI PULMONARY: Wheezing in all lung steele CARDIOVASCULAR: There is a regular rate and rhythm without any murmurs gallops or rubs. ABDOMEN: Soft and nontender with normal bowel sounds. SKIN: Skin is clear with no lesions or rashes and otherwise unremarkable. : Deferred NEUROLOGIC: Patient is alert and oriented x3. Moving all extremities spontaneously MUSCULOSKELETAL: Normal extremities with adequate strength and full range of motion. No lower extremity swelling or edema. No calf tenderness. PSYCHIATRIC: Normal psychiatric evaluation. Limitations: no limitations Course Vital Signs 02/12/20 23:25 Temperature 98.0 F Pulse Rate 97 Respiratory 18 Rate Blood Pressure 111/66 O2 Sat by Pulse 94 L Oximetry Medical Decision Making - Medical Decision Making Patient was seen and evaluated history is obtained from patient 34-year-old male with history of asthma every day cigarette smoker with wheezing in all lung steele She was afebrile oxygen saturation 94% on room air, not tachycardic DuoNeb and chest x-ray were ordered Chest x-ray with no signs of pneumonia, patient's symptoms improved after DuoNeb and he is comfortable with the plan for discharge home. Patient was provided with referrals to pulmonology for follow-up. Disposition Clinical Impression: Wheezing Disposition: HOME SELF-CARE Condition: Stable Additional Instructions: You need to follow up with a reconditioning associate (lung doctor) and consider quitting smoking to improve your breathing Return to the ER for any worsening Prescriptions: Albuterol Nebulized [Ventolin Nebulized] 2.5 mg INHALATION Q4H #30 nebu Is patient prescribed a controlled substance at d/c from ED?: No Referrals: None,Stated [Primary Care Provider] - 1-2 days Peterson Harden DO [Doctor of Osteopathic Medicine] - 1-2 days Lauren Chow MD [STAFF PHYSICIAN] - 1-2 days
[2020-02-13 00:43] VITALS: BP 119/73; PULSE 100; RESP 16; TEMP 98.1
== END 2020-02-13 00:43 | disposition home or self-care (01) ==
LOC: EC 23:08
DX: R06.2 Wheezing (principal); R05 Cough; R06.02 Shortness of breath; F17.200 Nicotine dependence, unspecified, uncomplicated; Z88.1 Allergy status to other antibiotic agents; Z86.14 Personal history of Methicillin resistant Staphylococcus aureus infection; Z87.01 Personal history of pneumonia (recurrent)
CPT/HCPCS: 71046; 99284

== ENCOUNTER 2021-04-19 20:29 | Emergency (ER) | payer OTHER, BC ==
[2021-04-19 20:41] VITALS: BP 125/76; PULSE 94; RESP 20; TEMP 98.3
[2021-04-19] MEDS ORDERED: IBUPROFEN 600 MG STARTER PACK 4 TAB BTL PO STA (22:07)
[2021-04-19] MEDS ORDERED: BACITRACIN OINT 1 EACH PACKET TOPICAL ONE (22:07)
[2021-04-19] MEDS ORDERED: LIDOCAINE 1% INJ 10MG/ML (20 ML MDV) SQ ONE (22:07)
--- NOTE | 2021-04-19 23:03 | ED ---
Wound/Laceration HPI - General Chief Complaint: Wound/Laceration Stated Complaint: [facility] L Finger Lac Time Seen by Provider: 04/19/21 21:22 Source: patient Mode of arrival: ambulatory Limitations: no limitations - History of Present Illness Initial Comments: 35 year-old male patient presents for evaluation of left index finger laceration. States he was using a socket wrench, when the socket broke and caused the laceration. Denies any pain with movement. He denies using any blood thinners. States he did have tetanus vaccine 2 or 3 years ago. Denies any other injuries or concerns. - Related Data Previous Rx's Medication Instructions Recorded Azithromycin [Zithromax Z-pack (6 250 mg PO DIRECTED #6 tab 10/08/18 tabs)] Sulfamethox-Tmp 800-160Mg [Bactrim 1 each PO Q8HR 14 Days #42 tab 12/28/18 Ds] Albuterol Nebulized [Ventolin 2.5 mg INHALATION Q4H #30 nebu 02/13/20 Nebulized] Allergies Allergy/AdvReac Type Severity Reaction Status Date / Time cefaclor [From Ceclor] AdvReac Cj Verified 04/19/21 20:39 Syndrome Review of Systems ROS Statement: Those systems with pertinent positive or pertinent negative responses have been documented in the HPI. ROS Other: All systems not noted in ROS Statement are negative. Past Medical History Past Medical History: Pneumonia History of Any Multi-Drug Resistant Organisms: MRSA Date of last positivie culture/infection: 2012 MDRO Source:: leg Past Surgical History: Ear Surgery Additional Past Surgical History / Comment(s): oral surgery, Past Psychological History: No Psychological Hx Reported Smoking Status: Current every day smoker Past Alcohol Use History: Occasional Past Drug Use History: Marijuana General Exam Limitations: no limitations General appearance: alert, in no apparent distress Respiratory exam: Present: normal lung sounds bilaterally. Absent: respiratory distress, wheezes, rales, rhonchi, stridor Cardiovascular Exam: Present: regular rate, normal rhythm, normal heart sounds. Absent: systolic murmur, diastolic murmur, rubs, gallop, clicks Extremities exam: Present: full ROM, normal capillary refill, other (2cm stellate laceration to the left index finger. No active bleeding. No bony ten derness. skin is otherwise pink, warm, dry. Cap refill less than 3 seconds. Radial pulses 2+.). Absent: tenderness, pedal edema, joint swelling, calf tenderness Neurological exam: Present: alert, oriented X3, CN II-XII intact Psychiatric exam: Present: normal affect, normal mood Skin exam: Present: warm, dry, intact, normal color. Absent: rash Course Vital Signs 04/19/21 20:39 Temperature 98.3 F Pulse Rate 94 Respiratory 20 Rate Blood Pressure 125/76 O2 Sat by Pulse 97 Oximetry Procedures - Laceration Laceration #1 Consent Obtained: verbal consent Indication: laceration Site: hand (left index finger) Size (cm): 2 Description: stellate Depth: simple, single layer Anesthetic Used: lidocaine 1% Anesthesia Technique: local infiltration Amount (mls): 1 Pre-repair: irrigated extensively Type of Sutures: nylon Size of Sutures: 4-0 Number of Sutures: 3 (1 corner stitch) Technique: simple, interrupted Patient Tolerated Procedure: well, no complications Medical Decision Making - Medical Decision Making 35-year-old male patient presented for evaluation of laceration to the left index finger. Physical examination did reveal stellate 2 cm laceration to the left index finger. Wound was repaired as documented. He is educated regarding wound care and signs or symptoms of infection. We discharged follow-up with the primary care physician for recheck in 1-2 days. Return parameters were discussed in detail. He verbalizes understanding and agrees with this plan. My attending is Dr. Mercado. Disposition Clinical Impression: Laceration of left index finger Disposition: HOME SELF-CARE Condition: Good Instructions (If sedation given, give patient instructions): Care For Your Stitches (ED), Finger Laceration (ED) Additional Instructions: Keep wound clean and dry. Cleanse twice daily with warm water and antibacterial soap. Return in 7 days to have your 3 stitches removed. Return for any new, worsening, or concerning symptoms. Is patient prescribed a controlled substance at d/c from ED?: No Referrals: None,Stated [Primary Care Provider] - 1-2 days Time of Disposition: 23:03
== END 2021-04-19 23:20 | disposition home or self-care (01) ==
LOC: EC 20:29
DX: S61.211A Laceration without foreign body of left index finger without damage to nail, initial encounter (principal); F17.200 Nicotine dependence, unspecified, uncomplicated; F12.90 Cannabis use, unspecified, uncomplicated; W26.8XXA Contact with other sharp object(s), not elsewhere classified, initial encounter
CPT/HCPCS: 12001; 99282; J2001

== ENCOUNTER 2022-12-05 18:45 | Emergency (ER) | payer BC ==
[2022-12-05 18:56] VITALS: TEMP 98.4
[2022-12-05] MEDS ORDERED: SODIUM CHLORIDE 0.9% 1,000 ML IV STA (20:47)
--- NOTE | 2022-12-05 21:50 | CT ---
EXAMINATION TYPE: CT abdomen pelvis wo con CT DLP: 373.3 mGycm, Automated exposure control for dose reduction was used. DATE OF EXAM: 12/05/2022 9:19 PM COMPARISON: 10/08/2016 CLINICAL INDICATION:Male, 37 years old with history of R flank pain; Rt side flank pain. TECHNIQUE: Axial CT of the abdomen and pelvis. Sagittal and coronal reformats were created on a Slide workstation. Contrast used: mL of , (none if empty) Oral contrast used: without Oral Contrast (none if empty) FINDINGS: LOWER CHEST: Unremarkable ABDOMEN LIVER: Unremarkable GALLBLADDER AND BILE DUCTS: Unremarkable. PANCREAS: Unremarkable. SPLEEN: Unremarkable. ADRENAL GLANDS: Unremarkable. KIDNEYS AND URETERS: No evidence of hydronephrosis or renal calculus. The ureters are unremarkable. PELVIS BLADDER: Unremarkable REPRODUCTIVE: Unremarkable. ABDOMEN & PELVIS STOMACH AND BOWEL: No evidence of bowel obstruction. Appendix appears normal PERITONEUM/RETROPERITONEUM: No evidence of pneumoperitoneum or free fluid. VASCULATURE: No evidence of aortic aneurysm. MUSCULOSKELETAL: No acute osseous abnormalities LYMPH NODES: No gross evidence for lymphadenopathy. SOFT TISSUE/ABDOMINAL WALL: Unremarkable IMPRESSION: Limited evaluation secondary to paucity of intra-abdominal fat and lack of IV or oral contrast. No re nal calculi visualized. No evidence for hydronephrosis. The appendix appears normal
--- NOTE | 2022-12-05 21:58 | ED ---
Abdominal Pain HPI - General Chief Complaint: Abdominal Pain Stated Complaint: Abd Pain Time Seen by Provider: 12/05/22 20:21 Source: patient Mode of arrival: ambulatory Limitations: no limitations - History of Present Illness Initial Comments: A 37-year-old male presents to the ED with a chief complaint of back pain. Patient states that he has been experiencing pain to his right lower back for the past month. Since onset, reports pain has been consistent, not worsening in nature. Denies urinary complaints. No changes in bowel habits. Denies chest pain or shortness of breath. No other complaints. - Related Data Previous Rx's Medication Instructions Recorded Azithromycin [Zithromax Z-pack (6 250 mg PO DIRECTED #6 tab 10/08/18 tabs)] Sulfamethox-Tmp 800-160Mg [Bactrim 1 each PO Q8HR 14 Days #42 tab 12/28/18 Ds] Albuterol Nebulized [Ventolin 2.5 mg INHALATION Q4H #30 nebu 02/13/20 Nebulized] Allergies Allergy/AdvReac Type Severity Reaction Status Date / Time cefaclor [From Ceclor] AdvReac Cj Verified 12/05/22 18:56 Syndrome Review of Systems ROS Statement: Those systems with pertinent positive or pertinent negative responses have been documented in the HPI. ROS Other: All systems not noted in ROS Statement are negative. Past Medical History Past Medical History: Asthma, Pneumonia History of Any Multi-Drug Resistant Organisms: MRSA Date of last positivie culture/infection: 2012 MDRO Source:: leg Past Surgical History: Ear Surgery Additional Past Surgical History / Comment(s): oral surgery, Past Psychological History: No Psychological Hx Reported Smoking Status: Current every day smoker Past Alcohol Use History: Occasional Past Drug Use History: Marijuana General Exam Limitations: no limitations General appearance: alert, in no apparent distress Respiratory exam: Present: normal lung sounds bilaterally Cardiovascular Exam: Present: regular rate, normal rhythm GI/Abdominal exam: Present: soft, tenderness (No abdominal tenderness to palpation. Right CVA tenderness to palpation.) Neurological exam: Present: alert, oriented X3 Psychiatric exam: Present: normal affect, normal mood Skin exam: Present: warm, dry Course Vital Signs 12/05/22 12/05/22 18:54 21:56 Temperature 98.4 F Pulse Rate 97 78 Respiratory 20 16 Rate Blood Pressure 116/71 127/88 O2 Sat by Pulse 99 96 Oximetry Medical Decision Making - Medical Decision Making Was pt. sent in by a medical professional or institution (EMILIA Holland, CANTEEN ATTENDANT, urgent care, hospital, or jail...) When possible be specific @ -No Did you speak to anyone other than the patient for history (EMS, parent, family, police, friend...)? What history was obtained from this source @ -No Did you review nursing and triage notes (agree or disagree)? Why? @ -I reviewed and agree with nursing and triage notes Were old charts reviewed (outside hosp., previous admission, EMS record, old EKG, old radiological studies, urgent care reports/EKG's, jail records)? Report findings @ -No old charts were reviewed Differential Diagnosis (chest pain, altered mental status, abdominal pain women, abdominal pain men, vaginal bleeding, weakness, fever, dyspnea, syncope, headache, dizziness, GI bleed, back pain, seizure, CVA, palpatations, mental health, musculoskeletal)? @ -Differential Abdominal Pain Men: Appendicitis, cholecystitis, diverticulosis, ischemic bowel, pancreatitis, hepatitis, UTI, gastroenteritis, AAA, incarcerated hernia, bowel obstruction, constipation, inflammatory bowel, hepatitis, peptic ulcer disease, splenic infarction, perforated viscus, testicular torsion, this is not meant to be an all-inclusive list EKG interpreted by me (3pts min.). @ -None X-rays interpreted by me (1pt min.). @ -None done CT interpreted by me (1pt min.). @ -CT abdomen and pelvis showed no acute findings. U/S interpreted by me (1pt. min.). @ -None done What testing was considered but not performed or refused? (CT, X-rays, U/S, labs)? Why? @ -None What meds were considered but not given or refused? Why? @ - Analgesics were offered to the patient however at this time deferred. Did you discuss the management of the patient with other professionals (professionals i.e. EMILIA Holland, CANTEEN ATTENDANT, lab, RT, psych nurse, professor of social work, copy lathe operator, teacher, crime prevention police officer, family independence case manager)? Give summary @ -No Was smoking cessation discussed for >3mins.? @ -No Was critical care preformed (if so, how long)? @ -No Were there social determinants of health that impacted care today? How? (Homelessness, low income, unemployed, alcoholism, drug addiction, transportation, low edu. Level, literacy, decrease access to med. care, prison, rehab)? @ -No Was there de-escalation of care discussed even if they declined (Discuss DNR or withdrawal of care, Hospice)? DNR status @ -No What co-morbidities impacted this encounter? (DM, HTN, Smoking, COPD, CAD, Cancer, CVA, ARF, Chemo, Hep., AIDS, mental health diagnosis, sleep apnea, morbid obesity)? @ -None Was patient admitted / discharged? Hospital course, mention meds given and route, prescriptions, significant lab abnormalities, going to OR and other pertinent info. @ -Discharge. CT of the abdomen and pelvis showed no acute findings. Laboratory studies did show some transaminitis elevations in ALT and AST however patient does report drinking yesterday. Denies any right upper quadrant or epigastric pain. Amylase and lipase unremarkable. CBC unremarkable. Patient will be discharged home in stable condition. Discussed return precautions with patient who verbalizes agreement. Undiagnosed new problem with uncertain prognosis? @ -No Drug Therapy requiring intensive monitoring for toxicity (Heparin, Nitro, Insulin, Cardizem)? @ -No Were any procedures done? @ -No Diagnosis/symptom? @ -Flank pain Acute, or Chronic, or Acute on Chronic? @ -Acute Uncomplicated (without systemic symptoms) or Complicated (systemic symptoms)? @ -Uncomplicated Side effects of treatment? @ -No Exacerbation, Progression, or Severe Exacerbation? @ -No Poses a threat to life or bodily function? How? (Chest pain, [place], [place], pneumonia, PE, COPD, DKA, ARF, appy, cholecystitis, CVA, Diverticulitis, Homicidal, Suicidal, threat to staff... and all critical care pts) @ -No - Lab Data Result diagrams: 12/05/22 21:30 12/05/22 21:30 Lab Results 12/05/22 12/05/22 12/05/22 Range/Units 21:30 21:30 22:28 WBC 4.5 (3.8-10.6) k/uL RBC 4.37 (4.30-5.90) m/uL Hgb 15.0 (13.0-17.5) gm/dL Hct 44.5 (39.0-53.0) % MCV 101.8 H (80.0-100.0) fL MCH 34.3 (25.0-35.0) pg MCHC 33.7 (31.0-37.0) g/dL RDW 14.1 (11.5-15.5) % Plt Count 209 (150-450) k/uL MPV 7.7 Neutrophils % 60 % Lymphocytes % 23 % Monocytes % 8 % Eosinophils % 7 % Basophils % 1 % Neutrophils # 2.7 (1.3-7.7) k/uL Lymphocytes # 1.0 (1.0-4.8) k/uL Monocytes # 0.4 (0-1.0) k/uL Eosinophils # 0.3 (0-0.7) k/uL Basophils # 0.0 (0-0.2) k/uL Macrocytosis Slight Sodium 141 (137-145) mmol/L Potassium 3.7 (3.5-5.1) mmol/L Chloride 103 (98-107) mmol/L Carbon Dioxide 29 (22-30) mmol/L Anion Gap 9 mmol/L BUN 8 L (9-20) mg/dL Creatinine 0.63 L (0.66-1.25) mg/dL Est GFR (CKD-EPI)AfAm >90 (>60 ml/min/1.73 sqM) Est GFR (CKD-EPI)NonAf >90 (>60 ml/min/1.73 sqM) Glucose 106 H (74-99) mg/dL Calcium 9.2 (8.4-10.2) mg/dL Total Bilirubin 0.4 (0.2-1.3) mg/dL AST 275 H (17-59) U/L ALT 200 H (4-49) U/L Alkaline Phosphatase 91 (38-126) U/L Total Protein 7.2 (6.3-8.2) g/dL Albumin 4.2 (3.5-5.0) g/dL Amylase 71 (30-110) U/L Lipase 279 (23-300) U/L Urine Color Yellow Urine Appearance Clear (Clear) Urine pH 6.5 (5.0-8.0) Ur Specific [place] 1.020 (1.001-1.035) Urine Protein Negative (Negative) Urine Glucose (UA) Negative (Negative) Urine Ketones Negative (Negative) Urine Blood Negative (Negative) Urine Nitrite Negative (Negative) Urine Bilirubin Negative (Negative) Urine Urobilinogen <2.0 (<2.0) mg/dL Ur Leukocyte Esterase Negative (Negative) Urine RBC 1 (0-5) /hpf Urine WBC 1 (0-5) /hpf Urine Mucus Rare H (None) /hpf Disposition Clinical Impression: Flank pain Disposition: HOME SELF-CARE Condition: Good Instructions (If sedation given, give patient instructions): Flank Pain (ED) Additional Instructions: Please return to the Emergency Department if symptoms worsen or any other miki rns. Is patient prescribed a controlled substance at d/c from ED?: No Referrals: Nonstaff,Physician [Primary Care Provider] - 1-2 days Decision Time: 23:10
[2022-12-05 22:03] LABS: Basophils % (A) 1 %; Eosinophils # (A) 0.3 k/uL (0-0.7); Eosinophils % (A) 7 %; HCT 44.5 % (39.0-53.0); Lymphocytes % (A) 23 %; MCH 34.3 pg (25.0-35.0); MCHC 33.7 g/dL (31.0-37.0); MCV 101.8 fL (80.0-100.0); Macrocytosis Slight; Mean Platelet Volume 7.7; Monocytes # (A) 0.4 k/uL (0-1.0); Monocytes % (A) 8 %; Neutrophils # (A) 2.7 k/uL (1.3-7.7); Neutrophils % (A) 60 %; Platelet Count 209 k/uL (150-450); RBC 4.37 m/uL (4.30-5.90); RDW 14.1 % (11.5-15.5); WBC 4.5 k/uL (3.8-10.6)
[2022-12-05 22:14] LABS: ALT 200 U/L (4-49); AST 275 U/L (17-59); African American GFR (CKD) >90 (>60 ml/min/1.73 sqM); Albumin 4.2 g/dL (3.5-5.0); Alkaline Phosphatase 91 U/L (38-126); Amylase 71 U/L (30-110); Anion Gap 9 mmol/L; Blood Urea Nitrogen 8 mg/dL (9-20); Calcium 9.2 mg/dL (8.4-10.2); Carbon Dioxide 29 mmol/L (22-30); Chloride 103 mmol/L (98-107); Glucose 106 mg/dL (74-99); Lipase 279 U/L (23-300); Non-African American GFR(CKD) >90 (>60 ml/min/1.73 sqM); Potassium 3.7 mmol/L (3.5-5.1); Sodium 141 mmol/L (137-145); Total Bilirubin 0.4 mg/dL (0.2-1.3); Total Protein 7.2 g/dL (6.3-8.2)
[2022-12-05 22:19] VITALS: PULSE 78; RESP 16
[2022-12-05 23:01] LABS: Appearance,Urine Clear (Clear); Bilirubin,Urine Negative (Negative); Blood,Urine Negative (Negative); Color,Urine Yellow; Glucose,Urine (UA) Negative (Negative); Ketones,Urine Negative (Negative); Leukocyte Esterase,Urine Negative (Negative); Nitrite,Urine Negative (Negative); PH, Urine 6.5 (5.0-8.0); Protein,Urine Negative (Negative); Urobilinogen,Urine <2.0 mg/dL (<2.0)
[2022-12-05 23:05] LABS: Mucus,Urine Rare /hpf; RBC,Urine 1 /hpf (0-5); WBC,Urine 1 /hpf (0-5)
[2022-12-05 23:23] VITALS: BP 129/72
== END 2022-12-05 23:23 | disposition home or self-care (01) ==
LOC: EC 18:45
DX: R10.9 Unspecified abdominal pain (principal); J45.909 Unspecified asthma, uncomplicated; F17.200 Nicotine dependence, unspecified, uncomplicated; F12.90 Cannabis use, unspecified, uncomplicated; Z88.6 Allergy status to analgesic agent; Z88.1 Allergy status to other antibiotic agents
CPT/HCPCS: 36415; 74176; 80053; 81003; 82150; 83690; 85025; 96360; 99284